=== PATIENT | female | born 1965 | race Caucasian/White ===

== ENCOUNTER 2021-04-10 10:33 | Outpatient (REF) | payer BC, SELFPAY ==
[2021-04-10 13:58] LABS: Hematocrit 44.7 % (37-47); Hemoglobin 14.9 g/dl (12.0-16.0); Mean Corpuscular HGB Conc 33.3 g/dl (31.0-35.0); Mean Corpuscular Hemoglobin 31.4 pg (27.0-33.0); Mean Corpuscular Volume 94.1 fL (80-98); Mean Platelet Volume 10.3 fL (9.4-12.3); Platelet Count 262 X10*3/uL (160-400); Red Blood Count 4.75 X10*6/uL (4.20-5.50); Red Cell Distribution Width 12.3 % (11.0-16.0); White Blood Count 6.5 X10*3/uL (4.8-10.8)
[2021-04-10 14:36] LABS: TSH reflex Free T4 0.84 uIU/mL (0.32-4.0)
[2021-04-10 14:53] LABS: HCG Quantitative 5 mIU/mL
[2021-04-11 04:15] LABS: CT PCR NOT DETECTED (Not Detect.); NG PCR NOT DETECTED (Not Detect.)
[2021-04-11 19:47] LABS: Follicle Stimulating Hormone 35.2 mIU/mL; Lutenizing Hormone 51.9 mIU/mL
[2021-04-15 23:42] LABS: HPV 16 RNA DETECTED (NOT DETECTED); HPV mRNA E6/E7 rflx Detected (Not Detected)
== END 2021-04-10 10:34 | disposition home or self-care (01) ==
LOC: HO.LAB 10:33
PROVIDERS: PCP Internal Medicine Sports Medicine; Visit Provider Obstetrics & Gynecology
DX: Z01.419 Encounter for gynecological examination (general) (routine) without abnormal findings (principal); N92.1 Excessive and frequent menstruation with irregular cycle; N93.9 Abnormal uterine and vaginal bleeding, unspecified; E11.9 Type 2 diabetes mellitus without complications; I10 Essential (primary) hypertension; D06.9 Carcinoma in situ of cervix, unspecified; Z91.040 Latex allergy status
CPT/HCPCS: 36415; 83001; 83002; 84443; 84702; 85027; 87491; 87591; 87624; 87625; 88142

== ENCOUNTER 2021-05-01 11:23 | Outpatient (REF) | payer BC, SELFPAY ==
--- NOTE | ~2021-05-01 | US_ITS ---
EXAMINATION: US PELVIS TRANSVAGINAL CLINICAL INFORMATION: Abnormal uterine and vaginal bleeding COMPARISON: 02/01/2020 and 08/31/2019 TECHNIQUE: Transcutaneous and transvaginal pelvic ultrasound. Transvaginal scanning was performed after voiding to better evaluate the endometrium and adnexa. FINDINGS: The uterus measures 6.9 x 3.2 x 4.0 cm. The uterus is anteverted. No suspicious abnormalities region of the cervix. Nabothian cyst present. The uterine contour is smooth. The endometrium measures 0.3 cm. No focal abnormalities within the myometrium. The right ovary measures approximately 2.0 x 1.5 x 1.2 cm. The calculated right ovarian volume is approximately 1.9 mL. No right adnexal normal adnexal findings appreciated. Normal vascularity present. The left ovary measures 2.8 x 1.5 x 1.5 cm. The calculated left ovarian volume is approximately 3.3 mL. There is a 1.1 x 1.1 x 1.0 cm heterogeneous echotexture mass without internal vascularity and with distal sound enhancement. This has not changed significantly compared to study of 02/01/2020. No significant free pelvic fluid. US/US pelvic and transvaginal IMPRESSION: Stable appearance of left ovarian 1.1 cm echotexture mass.
== END 2021-05-01 11:24 | disposition home or self-care (01) ==
LOC: HO.US 11:23
PROVIDERS: Visit Provider Obstetrics & Gynecology
DX: N93.9 Abnormal uterine and vaginal bleeding, unspecified (principal); N92.1 Excessive and frequent menstruation with irregular cycle; R87.612 Low grade squamous intraepithelial lesion on cytologic smear of cervix (LGSIL)
CPT/HCPCS: 57454; 76830; 76856; 88305

== ENCOUNTER 2021-05-01 14:54 | Outpatient (REF) | payer BC, SELFPAY | END 2021-05-01 14:55 | disposition home or self-care (01) | LOC: HO.LAB 14:54 | PROVIDERS: Visit Provider Obstetrics & Gynecology | DX: Z13.89 Encounter for screening for other disorder (principal) ==

== ENCOUNTER → 2021-05-15 13:18 | Outpatient (BNVA) | payer BC, SELFPAY | PROVIDERS: PCP Internal Medicine Sports Medicine; Visit Provider Obstetrics & Gynecology ==

== ENCOUNTER 2021-05-17 14:13 | Outpatient (REF) | payer BC, SELFPAY ==
[2021-05-20 17:57] LABS: CA-125 20 U/mL (<35)
== END 2021-05-17 14:14 | disposition home or self-care (01) ==
LOC: HO.LAB 14:13
PROVIDERS: PCP Internal Medicine Sports Medicine; Visit Provider Obstetrics & Gynecology
DX: N83.299 Other ovarian cyst, unspecified side (principal)
CPT/HCPCS: 36415; 86304

== ENCOUNTER 2021-05-21 14:28 | Outpatient (REF) | payer BC, SELFPAY | END 2021-05-21 14:29 | disposition home or self-care (01) | LOC: HO.LAB 14:28 | PROVIDERS: PCP Internal Medicine Sports Medicine; Visit Provider Obstetrics & Gynecology | DX: N92.1 Excessive and frequent menstruation with irregular cycle (principal); N83.299 Other ovarian cyst, unspecified side | CPT/HCPCS: 58100; 88305 ==

== ENCOUNTER → 2021-06-04 10:46 | Outpatient (BNVA) | payer BC, SELFPAY | PROVIDERS: PCP Internal Medicine Sports Medicine; Visit Provider Obstetrics & Gynecology ==

== ENCOUNTER 2021-06-13 10:57 | Outpatient (REF) | payer BC, SELFPAY ==
--- NOTE | ~2021-06-13 | MM_ITS ---
EXAMINATION: MM SCREENING DIGITAL BREAST TOMOSYNTHESIS, BILATERAL CLINICAL INFORMATION: Screening. Asymptomatic. The lifetime risk of breast cancer based on the Tyrer-Cuzick Model is 11%. COMPARISON: Mammography: 06/07/2020, 06/02/2019, 05/12/2018 TECHNIQUE: Digital breast tomosynthesis is performed in both the craniocaudal and mediolateral oblique views along with computer-aided detection (CAD). Synthesized 2D images are generated from the tomosynthesis. FINDINGS: There are scattered areas of fibroglandular density (ACR BI-RADS breast composition Category b). There are no significant masses, abnormal calcifications, or other abnormalities. Parenchymal pattern is similar to prior studies. The axilla and skin contours are unremarkable. MM/MM tomosynthesis screening BI IMPRESSION: No mammographic evidence of malignancy. ASSESSMENT: BI-RADS 1: Negative RECOMMENDATION: Routine annual mammography screening. This patient's information was entered into a reminder system with a target due date for their next mammogram.
== END 2021-06-13 10:58 | disposition home or self-care (01) ==
LOC: HO.MAMMO 10:57
PROVIDERS: Visit Provider Obstetrics & Gynecology
DX: Z12.31 Encounter for screening mammogram for malignant neoplasm of breast (principal)
CPT/HCPCS: 77063; 77067